=== PATIENT | female | born 1985 | race Caucasian/White ===

== ENCOUNTER 2017-03-13 19:32 | Emergency (ER) | payer MEDICAID ==
[2017-03-13] MEDS ORDERED: ONDANSETRON 4 MG TAB.RAPDIS PO ONE (19:57)
[2017-03-13] MEDS ORDERED: KETOROLAC TROMETHAMINE INJ/PF 30 MG/1 ML SDV IV ONE (20:32)
[2017-03-13] MEDS ORDERED: NORMAL SALINE 1000 ML 1,000 ML IV PRN (20:32)
--- NOTE | 2017-03-13 20:32 | ER Document Report ---
ED GI/ - General Chief Complaint: Abdominal Pain Stated Complaint: PELVIC PAIN/NAUSEA Time Seen by Provider: 03/13/17 20:01 Mode of Arrival: Ambulatory Information source: Patient TRAVEL OUTSIDE OF THE [place] IN LAST 30 DAYS: No - HPI Patient complains to provider of: Flank pain Onset: Other - 3 week Timing/Duration: Gradual Quality of pain: Achy, Sharp, Stabbing Severity at maximum: Moderate Severity in ED: Moderate Pain Level: 3 Location: Right flank Vaginal bleeding (Compared to normal period): None Associated symptoms: Chills, Dysuria, Nausea, Vomiting Similar symptoms previously: No Recently seen / treated by doctor: No Notes: 03/14/17 00:07 Patient is a 31-year-old female who presents to the emergency room complaining of 3 week history of right-sided flank pain, with associated nausea and vomiting , she denies any fevers, no diarrhea, no vaginal discharge or irregular bleeding - Related Data Allergies/Adverse Reactions: ciprofloxacin [From Cipro] Allergy (Verified 09/01/15 11:51) Unknown reaction Penicillins Allergy (Verified 09/01/15 11:51) Unknown reaction Past Medical History - General Information source: Patient - Social History Smoking Status: Current Every Day Smoker Chew tobacco use (# tins/day): No Frequency of alcohol use: None Drug Abuse: None Family History: Arthritis, CAD, CVA, DM, Hyperlipidemia, Hypertension, Malignancy, Other - MS. denies: Thyroid Disfunction Patient has suicidal ideation: No Patient has homicidal ideation: No - Past Medical History Cardiac Medical History: Reports: Hx Hypercholesterolemia, Hx Hypertension - meds to assist with pulse Pulmonary Medical History: Reports: Hx Asthma Neurological Medical History: Reports: Hx Migraine Renal/ Medical History: Denies: Hx Ectopic , Hx Ovarian Cysts, Hx Peritoneal Dialysis, Hx Pelvic Inflammatory Disease GI Medical History: Denies: Hx Gastritis, Hx Gastroesophageal Reflux Disease, Hx Hepatitis, Hx Irritable Bowel Musculoskeltal Medical History: Reports Hx Fibromyalgia Psychiatric Medical History: Reports: Hx Anxiety, Hx Attention Deficit Hyperactivity Disorder, Hx Bipolar Disorder, Hx Borderline Personality Disorder , Hx Depression Traumatic Medical History: Reports: Hx Fractures - left arm Infectious Medical History: Denies: Hx Hepatitis Past Surgical History: Reports: Hx Adenoidectomy, Hx Dilation and Curettage, Hx Myringotomy, Hx Orthopedic Surgery - back surgery, Hx Tonsillectomy - Immunizations Immunizations up to date: Yes Hx Diphtheria, Pertussis, Tetanus Vaccination: Yes - 2014 Hx Pneumococcal Vaccination: 09/16/10 Review of Systems - Review of Systems Constitutional: No symptoms reported EENT: No symptoms reported Cardiovascular: No symptoms reported Respiratory: No symptoms reported Gastrointestinal: See HPI Genitourinary: See HPI Female Genitourinary: No symptoms reported Musculoskeletal: No symptoms reported Skin: No symptoms reported Hematologic/Lymphatic: No symptoms reported Neurological/Psychological: No symptoms reported -: Yes All other systems reviewed and negative Physical Exam - Vital signs Vitals: Temp Pulse Resp BP Pulse Ox 98.0 F 105 H 17 123/82 97 03/13/17 19:40 03/13/17 19:40 03/13/17 19:40 03/13/17 19:40 03/13/17 19:40 Interpretation: Normal - General General appearance: Appears well, Alert - HEENT Head: Normocephalic, Atraumatic Eyes: Normal Pupils: PERRL - Respiratory Respiratory status: No respiratory distress Chest status: Nontender Breath sounds: Normal Chest palpation: Normal - Cardiovascular Rhythm: Regular Heart sounds: Normal auscultation Murmur: No - Abdominal Inspection: Normal Distension: No distension Bowel sounds: Normal Tenderness: Tender - right flank Organomegaly: No organomegaly - Back Back: Normal, CVA tenderness - right side - Extremities General upper extremity: Normal inspection, Nontender, Normal color, Normal ROM , Normal temperature General lower extremity: Normal inspection, Nontender, Normal color, Normal ROM , Normal temperature, Normal weight bearing. No: Reza's sign - Neurological Neuro grossly intact: Yes Cognition: Normal Orientation: AAOx4 [place] Coma Scale Eye Opening: Spontaneous Era Coma Scale Verbal: Oriented [place] Coma Scale Motor: Obeys Commands Era Coma Scale Total: 15 Speech: Normal Motor strength normal: LUE, RUE, LLE, RLE Sensory: Normal - Psychological Associated symptoms: Normal affect, Normal mood - Skin Skin Temperature: Warm Skin Moisture: Dry Skin Color: Normal Course - Re-evaluation Re-evalutation: 03/14/17 00:08 Laboratory findings discussed with patient at bedside which are consistent with a urinary tract infection, she was started on antibiotics for this and advised to follow-up with a primary care provider or return if symptoms worsen, patient acknowledges understanding and agreement with this plan - Vital Signs Vital signs: Temp Pulse Resp BP Pulse Ox 97.7 F 93 17 115/78 99 03/13/17 22:11 03/13/17 22:11 03/13/17 22:11 03/13/17 22:11 03/13/17 22:11 - Laboratory Result Diagrams: 03/13/17 20:22 03/13/17 20:22 Laboratory results interpreted by me: 03/13/17 03/13/17 03/13/17 20:05 20:22 20:22 WBC 13.7 H Absolute Lymphocytes 5.1 H Total Bilirubin 1.5 H Total Protein 8.5 H Urine Protein 30 H Urine Nitrite POSITIVE H Ur Leukocyte Esterase LARGE H Discharge - Discharge Clinical Impression: Urinary tract infection Qualifiers: Urinary tract infection type: site unspecified Hematuria presence: without hematuria Qualified Code(s): N39.0 - Urinary tract infection, site not specified Condition: Stable Disposition: HOME, SELF-CARE Instructions: Urinary Tract Infection ([facility]) Additional Instructions: Follow up with your primary care provider in one to 2 days. Return to the emergency room immediately if symptoms worsen or any additional concerns. Follow up with your primary care provider in one to 2 days. Return to the emergency room immediately if symptoms worsen or any additional concerns. Prescriptions: Cephalexin Monohydrate [Keflex 500 mg Capsule] 500 mg PO BID #20 capsule Hydrocodone/Acetaminophen [Hydrocodon-Acetaminophen 5-325] 1 each PO Q6 #10 tablet Referrals: EDMOND SANCHEZ MD [Primary Care Provider] - Follow up as needed
[2017-03-13 20:39] LABS: ABSOLUTE BASOPHILS # (AUTO) 0.2 10^3/uL (0.0-0.2); ABSOLUTE EOSINOPHILS # (AUTO) 0.5 10^3/uL (0.0-0.6); ABSOLUTE LYMPHOCYTES (AUTO) 5.1 10^3/uL (0.5-4.7); ABSOLUTE NEUT (AUTO) 6.9 10^3/uL (1.7-8.2); BASOPHILS % (AUTO) 1.1 % (0-2); EOSINOPHILS % (AUTO) 3.6 % (0-6); HEMATOCRIT 46.4 % (36.0-47.0); HEMOGLOBIN 15.4 g/dL (12.0-15.5); HGB HCT DIFFERENCE -0.2; LYMPHOCYTES % (AUTO) 37.6 % (13-45); MEAN CORPUSCULAR HEMOGLOBIN 30.3 pg (27.0-33.4); MEAN CORPUSCULAR HGB CONC 33.3 g/dL (32.0-36.0); MEAN CORPUSCULAR VOLUME 91 fl (80-97); MONOCYTES % (AUTO) 7.4 % (3-13); RED BLOOD COUNT 5.09 10^6/uL (3.72-5.28); SEGMENTED NEUTROPHILS % (AUTO) 50.3 % (42-78); WHITE BLOOD COUNT 13.7 10^3/uL (4.0-10.5)
[2017-03-13 20:41] LABS: APPEARANCE,URINE CLOUDY; BILIRUBIN,URINE NEGATIVE (NEGATIVE); GLUCOSE, URINE NEGATIVE (NEGATIVE); KETONES,URINE NEGATIVE (NEGATIVE); LEUKOCYTE ESTERASE,URINE LARGE (NEGATIVE); NITRITE,URINE POSITIVE (NEGATIVE); PROTEIN,URINE 30 mg/dL (NEGATIVE); UROBILINOGEN,URINE NEGATIVE mg/dL (<2.0)
[2017-03-13 20:56] LABS: ALANINE AMINOTRANSFERASE 35 U/L (9-52); ALBUMIN 4.5 g/dL (3.5-5.0); ALKALINE PHOSPHATASE 101 U/L (38-126); ANION GAP 11 (5-19); ASPARTATE AMINO TRANSFERASE 23 U/L (14-36); BILIRUBIN,DIRECT 0.3 mg/dL (0.0-0.4); BILIRUBIN,TOTAL 1.5 mg/dL (0.2-1.3); BLOOD UREA NITROGEN 9 mg/dL (7-20); CALCIUM 9.7 mg/dL (8.4-10.2); CARBON DIOXIDE 25 mmol/L (22-30); CHLORIDE 104 mmol/L (98-107); CREATININE RESULT 0.85 mg/dL (0.52-1.25); GLUCOSE 89 mg/dL (75-110); LIPASE 92.6 U/L (23-300); POTASSIUM 4.8 mmol/L (3.6-5.0); SODIUM 140.3 mmol/L (137-145); TOTAL PROTEIN 8.5 g/dL (6.3-8.2)
[2017-03-13] MEDS ORDERED: CEPHALEXIN 500 MG CAPSULE PO ONE (21:21)
[2017-03-13] MEDS ORDERED: MORPHINE SULFATE 10 MG/ML INJ IV ONE (21:21)
[2017-03-13] MEDS ORDERED: HYDROCODONE/ACETAMINOPHEN 5-325 MG 6 TAB/DSPK PO PRN (22:04)
[2017-03-13 22:13] VITALS: BP 115/78
== END 2017-03-13 22:20 | disposition home or self-care (01) ==
LOC: ER 19:32
DX: N39.0 Urinary tract infection, site not specified (principal); R10.9 Unspecified abdominal pain; R10.2 Pelvic and perineal pain; R11.2 Nausea with vomiting, unspecified; F17.200 Nicotine dependence, unspecified, uncomplicated
CPT/HCPCS: 99284; 96361; 96374; 96375; 36415; 83690; 85025; 81025; 80053; 81001; S0119; J1885; J2270; J7030

== ENCOUNTER 2017-04-08 20:35 | Emergency (ER) | payer MEDICAID ==
[2017-04-08] MEDS ORDERED: OXYCODONE-ACETAMINOPHEN 5-325 MG TABLET PO ONE (23:14)
--- NOTE | 2017-04-08 23:15 | ER Document Report ---
HPI - HPI Patient complains to provider of: right ankle injury Pain Level: 4 Context: Patient is a 31-year-old female who comes emergency department for chief complaint of right ankle injury. She states that she rolled her ankle, causing swelling to the outside of her ankle, she states she can barely walk on this and has been tripping and falling because of it. She denies any other areas of injury. She denies head injury. Past medical history of fibromyalgia, anxiety , PTSD, she is taking Lyrica, Cymbalta, Xanax, Topamax, ibuprofen, Adderall. - REPRODUCTIVE Reproductive: DENIES: : - DERM Skin Color: Normal, [place] Past Medical History - General Information source: Patient - Social History Smoking Status: Former Smoker Frequency of alcohol use: Occasional Drug Abuse: None Lives with: Family Family History: Arthritis, CAD, CVA, DM, Hyperlipidemia, Hypertension, Malignancy, Other - MS. denies: Thyroid Disfunction - Past Medical History Cardiac Medical History: Reports: Hx Hypercholesterolemia, Hx Hypertension - meds to assist with pulse Pulmonary Medical History: Reports: Hx Asthma Neurological Medical History: Reports: Hx Migraine Renal/ Medical History: Denies: Hx Ectopic , Hx Ovarian Cysts, Hx Peritoneal Dialysis, Hx Pelvic Inflammatory Disease GI Medical History: Denies: Hx Gastritis, Hx Gastroesophageal Reflux Disease, Hx Hepatitis, Hx Irritable Bowel Musculoskeltal Medical History: Reports Hx Fibromyalgia Psychiatric Medical History: Reports: Hx Anxiety, Hx Attention Deficit Hyperactivity Disorder, Hx Bipolar Disorder, Hx Borderline Personality Disorder , Hx Depression Traumatic Medical History: Reports: Hx Fractures - left arm Infectious Medical History: Denies: Hx Hepatitis Past Surgical History: Reports: Hx Adenoidectomy, Hx Dilation and Curettage, Hx Myringotomy, Hx Orthopedic Surgery - back surgery, Hx Tonsillectomy - Immunizations Immunizations up to date: Yes Hx Diphtheria, Pertussis, Tetanus Vaccination: Yes - 2014 Hx Pneumococcal Vaccination: 09/16/10 Vertical Provider Document - CONSTITUTIONAL General Appearance: WD/WN, No Apparent Distress - INFECTION CONTROL TRAVEL OUTSIDE OF THE [place] IN LAST 30 DAYS: No - HEENT HEENT: Atraumatic, Normocephalic - RESPIRATORY Respiratory: Breath Sounds Normal, No Respiratory Distress O2 Sat by Pulse Oximetry: 97 - CARDIOVASCULAR Cardiovascular: Regular Rate, Regular Rhythm - GI/ABDOMEN Gastrointestinal: Abdomen Soft, Abdomen Non-Tender - BACK Back: Normal Inspection - MUSCULOSKELETAL/EXTREMETIES Musculoskeletal/Extremeties: Tender - Patient winces with palpation over the lateral ankle on the right side, normal pulse and sensation, normal foot exam otherwise, normal leg and lower extremity exam otherwise Course - Re-evaluation Re-evalutation: X-ray imaging shows no concerning abnormalities. Suspect soft tissue injury based on her examination. No other concerning abnormalities noted. He is already taking an anti-inflammatory, ibuprofen, at home, patient asking for additional medication, she was given tramadol. Patient also placed in ankle stirrup splint, provided crutches, discussed follow-up and return precautions. - Vital Signs Vital signs: Temp Pulse Resp BP Pulse Ox 98.4 F 103 H 20 130/78 H 97 04/08/17 21:10 04/08/17 21:10 04/08/17 21:10 04/08/17 21:10 04/08/17 21:10 - Diagnostic Test Radiology reviewed: Image reviewed, Reports reviewed Procedures - Immobilization Right ankle Pre-Proc Neuro Vasc Exam: Normal Immobilizer type: Ankle stirrup Performed by: RN Post-Proc Neuro Vasc Exam: Normal Alignment checked and good: Yes Discharge - Discharge Clinical Impression: Right ankle injury Qualifiers: Encounter type: initial encounter Qualified Code(s): S99.911A - Unspecified injury of right ankle, initial encounter Condition: Stable Disposition: HOME, SELF-CARE Additional Instructions: Examination and symptoms are consistent with an ankle sprain. X-ray imaging shows no abnormalities. Elevate your ankle, apply ice to the ankle 3-4 times daily for 10-15 minutes, continue your ibuprofen, I recommend using the supportive splint and crutches for the next 2-3 days. Follow-up with primary care. Return to emergency department for any concerning symptoms. Prescriptions: Tramadol HCl 50 mg PO ASDIR PRN #20 tablet PRN Reason:
--- NOTE | 2017-04-08 23:30 | RADIOLOGY REPORT (SQ) ---
EXAM DESCRIPTION: ANKLE RIGHT COMPLETE COMPLETED DATE/TIME: 04/08/2017 11:22 pm REASON FOR STUDY: injury, painful walking COMPARISON: None. NUMBER OF VIEWS: Three views. TECHNIQUE: AP, lateral, and oblique radiographic images acquired of the right ankle. LIMITATIONS: None. FINDINGS: MINERALIZATION: Normal. BONES: No acute fracture or dislocation. No worrisome bone lesions. JOINTS: No effusions. SOFT TISSUES: No soft tissue swelling. No foreign body. OTHER: No other significant finding. IMPRESSION: NEGATIVE STUDY OF THE RIGHT ANKLE. NO RADIOGRAPHIC EVIDENCE OF ACUTE INJURY. TECHNICAL DOCUMENTATION: JOB ID: [id number] [employer]- All Rights Reserved
[2017-04-08 23:46] VITALS: BP 134/80
== END 2017-04-08 23:46 | disposition home or self-care (01) ==
LOC: ER 20:35
DX: S99.911A Unspecified injury of right ankle, initial encounter (principal); X50.9XXA Other and unspecified overexertion or strenuous movements or postures, initial encounter; I10 Essential (primary) hypertension; J45.909 Unspecified asthma, uncomplicated; F41.9 Anxiety disorder, unspecified; F90.9 Attention-deficit hyperactivity disorder, unspecified type; F32.9 Major depressive disorder, single episode, unspecified; F43.10 Post-traumatic stress disorder, unspecified; M79.7 Fibromyalgia; Z79.899 Other long term (current) drug therapy; Z79.1 Long term (current) use of non-steroidal anti-inflammatories (NSAID); Z87.891 Personal history of nicotine dependence
CPT/HCPCS: 99283; 73610; L4350

== ENCOUNTER 2017-11-21 10:25 | Emergency (ER) | payer MEDICAID ==
[2017-11-21 10:39] VITALS: BP 118/68
[2017-11-21] MEDS ORDERED: PREDNISONE 20 MG TABLET PO ONE (11:05)
[2017-11-21] MEDS ORDERED: LIDOCAINE 5% (700 MG) TRANSDERMAL ADH..PATCH TP ONE (11:06)
--- NOTE | 2017-11-21 11:11 | ER Document Report ---
ED General - General Chief Complaint: Back Pain Stated Complaint: BACK INJURY Time Seen by Provider: 11/21/17 10:53 TRAVEL OUTSIDE OF THE [place] IN LAST 30 DAYS: No - HPI Patient complains to provider of: Back pain Notes: Patient coming in for evaluation of back pain back pain ongoing for 1 week patient states she was lifting heavy objects at work. Patient denies any bowel or bladder incontinence. Amatory here in the hospital. Denies any numbness or tingling going down the leg. Patient resting comfortably upon my evaluation holding her right lower back - Related Data Allergies/Adverse Reactions: ciprofloxacin [From Cipro] Allergy (Verified 09/01/15 11:51) Unknown reaction codeine Allergy (Verified 11/21/17 10:57) Unknown reaction Penicillins Allergy (Verified 09/01/15 11:51) Unknown reaction Past Medical History - Social History Smoking Status: Current Every Day Smoker Chew tobacco use (# tins/day): No Frequency of alcohol use: None Drug Abuse: None Family History: Arthritis, CAD, CVA, DM, Hyperlipidemia, Hypertension, Malignancy, Other - MS. denies: Thyroid Disfunction Patient has suicidal ideation: No Patient has homicidal ideation: No - Past Medical History Cardiac Medical History: Reports: Hx Hypercholesterolemia, Hx Hypertension - meds to assist with pulse Pulmonary Medical History: Reports: Hx Asthma Neurological Medical History: Reports: Hx Migraine Renal/ Medical History: Denies: Hx Ectopic , Hx Ovarian Cysts, Hx Peritoneal Dialysis, Hx Pelvic Inflammatory Disease GI Medical History: Denies: Hx Gastritis, Hx Gastroesophageal Reflux Disease, Hx Hepatitis, Hx Irritable Bowel Musculoskeltal Medical History: Reports Hx Fibromyalgia Psychiatric Medical History: Reports: Hx Anxiety, Hx Attention Deficit Hyperactivity Disorder, Hx Bipolar Disorder, Hx Borderline Personality Disorder , Hx Depression Traumatic Medical History: Reports: Hx Fractures - left arm Infectious Medical History: Denies: Hx Hepatitis Past Surgical History: Reports: Hx Adenoidectomy, Hx Dilation and Curettage, Hx Myringotomy, Hx Orthopedic Surgery - back surgery, Hx Tonsillectomy - Immunizations Immunizations up to date: Yes Hx Diphtheria, Pertussis, Tetanus Vaccination: Yes - 2014 Hx Pneumococcal Vaccination: 09/16/10 Review of Systems - Review of Systems Constitutional: No symptoms reported EENT: No symptoms reported Cardiovascular: No symptoms reported Respiratory: No symptoms reported Gastrointestinal: No symptoms reported Genitourinary: No symptoms reported Female Genitourinary: No symptoms reported Musculoskeletal: Back pain Skin: No symptoms reported Hematologic/Lymphatic: No symptoms reported Neurological/Psychological: No symptoms reported -: Yes All other systems reviewed and negative Physical Exam - Vital signs Vitals: Temp Pulse Resp BP Pulse Ox 98.1 F 77 16 118/68 99 11/21/17 10:38 11/21/17 10:38 11/21/17 10:38 11/21/17 10:38 11/21/17 10:38 Interpretation: Normal - General General appearance: Appears well, Alert - HEENT Head: Normocephalic, Atraumatic Eyes: Normal Pupils: PERRL - Respiratory Respiratory status: No respiratory distress Chest status: Nontender Breath sounds: Normal Chest palpation: Normal - Cardiovascular Rhythm: Regular Heart sounds: Normal auscultation Murmur: No - Abdominal Inspection: Normal Distension: No distension Bowel sounds: Normal Tenderness: Nontender Organomegaly: No organomegaly - Back Back: Normal, Tender - Mild tenderness of the right paraspinal and midline no signs of trauma no bruising no rashes - Extremities General upper extremity: Normal inspection, Nontender, Normal color, Normal ROM , Normal temperature General lower extremity: Normal inspection, Nontender, Normal color, Normal ROM , Normal temperature, Normal weight bearing. No: Reza's sign - Neurological Neuro grossly intact: Yes Cognition: Normal Orientation: AAOx4 [place] Coma Scale Eye Opening: Spontaneous Era Coma Scale Verbal: Oriented [place] Coma Scale Motor: Obeys Commands Era Coma Scale Total: 15 Speech: Normal Motor strength normal: LUE, RUE, LLE, RLE Sensory: Normal - Psychological Associated symptoms: Normal affect, Normal mood - Skin Skin Temperature: Warm Skin Moisture: Dry Skin Color: Normal Course - Re-evaluation Re-evalutation: 11/21/17 15:04 The patient presents with low back pain without signs of spinal cord compression , cauda equina syndrome, infection, aneurysm, or other serious etiology. The patient is neurologically intact. Given the extremely low risk of these diagnoses further testing and evaluation for these possibilities does not appear to be indicated at this time. The patient has been instructed to return if the symptoms worsen or change in any way. Patient drug database shows multiple prescriptions for narcotics last 1 was a month supply of tramadol given on 10/30/2017 with 3 refills. Explained to the patient she can continue this along with Tylenol Motrin warm packs and high packs for her back pain. I will give the patient 10 Flexeril's otherwise patient is discharged home - Vital Signs Vital signs: Temp Pulse Resp BP Pulse Ox 98.1 F 77 16 118/68 99 11/21/17 10:38 11/21/17 10:38 11/21/17 10:38 11/21/17 10:38 11/21/17 10:38 Discharge - Discharge Clinical Impression: Back pain Qualifiers: Back pain location: low back pain Chronicity: acute Back pain laterality: right Sciatica presence: without sciatica Qualified Code(s): M54.5 - Low back pain Condition: Good Disposition: HOME, SELF-CARE Instructions: Ice Packs ([facility]), Low Back Pain ([facility]), Muscle Relaxers ([facility]), Muscle Strain ([facility]), Warm Packs ([facility]) Additional Instructions: More likely you are suffering from a slight back sprain. Please continue your tramadol prescribed by her primary care physician. SHe may also use Tylenol Motrin for pain control. Please use warm packs and ice packs to also help out with the pain. I will give you a prescription for Flexeril to use over the next few days to help also help out with the pain most back pain was ultimately relieved by rest and anti-inflammatory medications. Prescriptions: Cyclobenzaprine HCl [Flexeril 5 mg Tablet] 5 mg PO TID #10 tablet Ibuprofen [Motrin 800 mg Tablet] 800 mg PO Q8H PRN #30 tab PRN Reason: Referrals: EDMOND SANCHEZ MD [Primary Care Provider] - Follow up as needed
== END 2017-11-21 11:34 | disposition home or self-care (01) ==
LOC: ER 10:25
DX: M54.5 Low back pain (principal); X50.0XXA Overexertion from strenuous movement or load, initial encounter; Y99.0 Civilian activity done for income or pay; I10 Essential (primary) hypertension; J45.909 Unspecified asthma, uncomplicated; F17.200 Nicotine dependence, unspecified, uncomplicated; Z88.1 Allergy status to other antibiotic agents; Z88.5 Allergy status to narcotic agent; Z88.0 Allergy status to penicillin
CPT/HCPCS: 99283; J3490; J7512

== ENCOUNTER 2018-01-28 03:12 | Emergency (ER) | payer MEDICAID ==
[2018-01-28] MEDS ORDERED: NORMAL SALINE 1000 ML 1,000 ML IV ONE (03:34)
[2018-01-28] MEDS ORDERED: ONDANSETRON HCL INJ/PF 4 MG/2 ML SDV IV ONE (03:34)
[2018-01-28] MEDS ORDERED: KETOROLAC TROMETHAMINE INJ/PF 30 MG/1 ML SDV IV ONE (03:44)
[2018-01-28] MEDS ORDERED: DIPHENHYDRAMINE HCL 50 MG/ML VIAL IV ONE (03:44)
[2018-01-28] MEDS ORDERED: METOCLOPRAMIDE HCL INJ/PF 10 MG/2 ML SDV IV ONE (03:44)
--- NOTE | 2018-01-28 03:46 | ER Document Report ---
ED General - General Chief Complaint: Headache >24 hrs old Stated Complaint: HEADACHE,VOMITING Time Seen by Provider: 01/28/18 03:36 Notes: Patient is a 32-year-old female comes emergency department with chief complaint of fever, headache, body aches, occasional cough, she states she has been sick for the past 4 days with fevers. She denies specific chest or abdominal pain. She states that she is having a migraine as well and she has had frequent migraines ever since she stopped drinking caffeine, she states that recently she was placed on Suboxone and Topamax but she is still having headaches. She reports a history of bipolar, anxiety, and fibromyalgia. TRAVEL OUTSIDE OF THE [place] IN LAST 30 DAYS: No - Related Data Allergies/Adverse Reactions: ciprofloxacin [From Cipro] Allergy (Verified 09/01/15 11:51) Unknown reaction codeine Allergy (Verified 11/21/17 10:57) Unknown reaction Penicillins Allergy (Verified 09/01/15 11:51) Unknown reaction Past Medical History - General Information source: Patient - Social History Smoking Status: Former Smoker Frequency of alcohol use: None Drug Abuse: Other - Patient reports former drug abuse, none in years, denies ever using IV drugs Lives with: Family Family History: Arthritis, CAD, CVA, DM, Hyperlipidemia, Hypertension, Malignancy, Other - MS. denies: Thyroid Disfunction - Past Medical History Cardiac Medical History: Reports: Hx Hypercholesterolemia, Hx Hypertension - meds to assist with pulse Pulmonary Medical History: Reports: Hx Asthma Neurological Medical History: Reports: Hx Migraine Renal/ Medical History: Denies: Hx Ectopic , Hx Ovarian Cysts, Hx Peritoneal Dialysis, Hx Pelvic Inflammatory Disease GI Medical History: Denies: Hx Gastritis, Hx Gastroesophageal Reflux Disease, Hx Hepatitis, Hx Irritable Bowel Musculoskeltal Medical History: Reports Hx Fibromyalgia Psychiatric Medical History: Reports: Hx Anxiety, Hx Attention Deficit Hyperactivity Disorder, Hx Bipolar Disorder, Hx Borderline Personality Disorder , Hx Depression Traumatic Medical History: Reports: Hx Fractures - left arm Infectious Medical History: Denies: Hx Hepatitis Past Surgical History: Reports: Hx Adenoidectomy, Hx Dilation and Curettage, Hx Myringotomy, Hx Orthopedic Surgery - back surgery, Hx Tonsillectomy - Immunizations Immunizations up to date: Yes Hx Diphtheria, Pertussis, Tetanus Vaccination: Yes - 2014 Hx Pneumococcal Vaccination: 09/16/10 Review of Systems - Review of Systems Constitutional: See HPI EENT: No symptoms reported Cardiovascular: No symptoms reported Respiratory: See HPI Gastrointestinal: No symptoms reported Genitourinary: No symptoms reported Female Genitourinary: No symptoms reported Musculoskeletal: No symptoms reported Skin: No symptoms reported Hematologic/Lymphatic: No symptoms reported Neurological/Psychological: See HPI Physical Exam - Vital signs Vitals: Temp Pulse Resp BP Pulse Ox 100.4 F 128 H 19 120/69 96 01/28/18 03:01/28/18 03:01/28/18 03:01/28/18 03:01/28/18 03:22 - Notes Notes: GENERAL: Alert, interacts well. No acute distress. HEAD: Normocephalic, atraumatic. EYES: Pupils equal, round, and reactive to light. Extraocular movements intact. ENT: Oral mucosa moist, tongue midline. NECK: Full range of motion. Supple. Trachea midline. Specifically no nuchal rigidity. LUNGS: Clear to auscultation bilaterally, no wheezes, rales, or rhonchi. No respiratory distress. HEART: Tachycardic. No arrhythmia noted. No murmur ABDOMEN: Soft, non-tender. Non-distended. Bowel sounds present in all 4 quadrants. EXTREMITIES: Moves all 4 extremities spontaneously. No edema, normal radial and dorsalis pedis pulses bilaterally. No cyanosis. BACK: no cervical, thoracic, lumbar midline tenderness. No saddle anesthesia, normal distal neurovascular exam. NEUROLOGICAL: Alert and oriented x3. Normal speech. [cranial nerves II through XII grossly intact]. PSYCH: Normal affect, normal mood. SKIN: Warm, dry, normal turgor. No rashes or lesions noted. Course - Re-evaluation Re-evalutation: Patient smiling, well-appearing, no nuchal rigidity, unremarkable lung exam, no cough, no respiratory symptoms noted. Soft abdomen, no CVA tenderness. She is tachycardic. Complaining of headache which is throbbing, she has photophobia. Fever reported for 4 days. Very low suspicion of meningitis, specifically not septic meningitis. CBC shows leukocytosis with elevation of neutrophils but no bandemia, chemistry generally unremarkable. Urinalysis shows infection with positive nitrates, white blood cells, leukocyte esterase. Culture placed. Given Rocephin. Suspect this is the cause of her fever. Patient is a poor historian. Patient sleeping and easily aroused on reexamination. She does report feeling better. Heart rate significantly improved. She states she is ready to go home. Discussed treatment, follow-up, return precautions. Patient states understanding and agreement. - Vital Signs Vital signs: Temp Pulse Resp BP Pulse Ox 99.2 F 108 H 18 112/62 96 01/28/18 05:41 01/28/18 05:41 01/28/18 05:41 01/28/18 05:41 01/28/18 05:41 - Laboratory Result Diagrams: 01/28/18 04:06 01/28/18 04:06 Laboratory results interpreted by me: 01/28/18 01/28/18 01/28/18 04:06 04:06 04:06 WBC 13.9 H Seg Neutrophils % 82.4 H Lymphocytes % 6.0 L Absolute Neutrophils 11.5 H Absolute Monocytes 1.5 H Glucose 128 H Total Bilirubin 2.3 H Direct Bilirubin 0.9 H AST 136 H ALT 140 H Total Protein 8.4 H Urine Protein 100 H Urine Blood LARGE H Urine Nitrite POSITIVE H Urine Urobilinogen 2.0 H Ur Leukocyte Esterase MODERATE H Discharge - Discharge Clinical Impression: Fever Qualifiers: Fever type: unspecified Qualified Code(s): R50.9 - Fever, unspecified Urinary tract infection Qualifiers: Urinary tract infection type: site unspecified Hematuria presence: without hematuria Qualified Code(s): N39.0 - Urinary tract infection, site not specified Headache Qualifiers: Headache type: unspecified Headache chronicity pattern: episodic headache Intractability: not intractable Qualified Code(s): R51 - Headache Condition: Stable Disposition: HOME, SELF-CARE Additional Instructions: Your workup indicates a urinary tract infection, this is most likely the source of your fever. Take Keflex antibiotics as prescribed, drink plenty fluids and rest. Continue your current headache medications. Follow-up with primary care for additional evaluation and management. Return if you worsen including vomiting, abdominal or flank pain, severe worsening headache, or any other concerning or worsening symptoms. Prescriptions: Cephalexin Monohydrate [Keflex 500 mg Capsule] 500 mg PO QID #28 capsule Forms: Return to Work Referrals: EDMOND SANCHEZ MD [Primary Care Provider] - Follow up as needed
[2018-01-28 04:30] LABS: APPEARANCE,URINE CLOUDY; BILIRUBIN,URINE NEGATIVE (NEGATIVE); COLOR,URINE AMBER; GLUCOSE, URINE NEGATIVE (NEGATIVE); KETONES,URINE NEGATIVE (NEGATIVE); LEUKOCYTE ESTERASE,URINE MODERATE (NEGATIVE); NITRITE,URINE POSITIVE (NEGATIVE); PROTEIN,URINE 100 mg/dL (NEGATIVE); URINE SPECIFIC GRAVITY 1.016
[2018-01-28 04:35] LABS: ABSOLUTE EOSINOPHILS # (AUTO) 0.1 10^3/uL (0.0-0.6); ABSOLUTE LYMPHOCYTES (AUTO) 0.8 10^3/uL (0.5-4.7); ABSOLUTE MONOCYTES (AUTO) 1.5 10^3/uL (0.1-1.4); ABSOLUTE NEUT (AUTO) 11.5 10^3/uL (1.7-8.2); BASOPHILS % (AUTO) 0.2 % (0-2); EOSINOPHILS % (AUTO) 0.4 % (0-6); HEMATOCRIT 42.6 % (36.0-47.0); HEMOGLOBIN 14.5 g/dL (12.0-15.5); MEAN CORPUSCULAR HEMOGLOBIN 31.1 pg (27.0-33.4); MEAN CORPUSCULAR HGB CONC 34.1 g/dL (32.0-36.0); MEAN CORPUSCULAR VOLUME 91 fl (80-97); PLATELET COUNT 262 10^3/uL (150-450); RED BLOOD COUNT 4.67 10^6/uL (3.72-5.28); RED CELL DISTRIBUTION WIDTH 12.6 % (11.5-14.0); SEGMENTED NEUTROPHILS % (AUTO) 82.4 % (42-78); TOTAL CELLS COUNTED % (AUTO) 100 %; WHITE BLOOD COUNT 13.9 10^3/uL (4.0-10.5)
[2018-01-28 04:37] LABS: ALANINE AMINOTRANSFERASE 140 U/L (9-52); ALBUMIN 4.2 g/dL (3.5-5.0); ALKALINE PHOSPHATASE 107 U/L (38-126); ANION GAP 11 (5-19); ASPARTATE AMINO TRANSFERASE 136 U/L (14-36); BILIRUBIN,DIRECT 0.9 mg/dL (0.0-0.4); BILIRUBIN,TOTAL 2.3 mg/dL (0.2-1.3); BLOOD UREA NITROGEN 13 mg/dL (7-20); CALCIUM 9.5 mg/dL (8.4-10.2); CARBON DIOXIDE 29 mmol/L (22-30); CHLORIDE 100 mmol/L (98-107); GLUCOSE 128 mg/dL (75-110); POTASSIUM 4.1 mmol/L (3.6-5.0); SODIUM 140.3 mmol/L (137-145); TOTAL PROTEIN 8.4 g/dL (6.3-8.2)
[2018-01-28] MEDS ORDERED: CEFTRIAXONE INJ 1000 MG VIAL IV ONE (04:44)
[2018-01-28] MEDS ORDERED: MORPHINE SULFATE 10 MG/ML INJ IV ONE (04:50)
[2018-01-28 05:42] VITALS: BP 112/62
== END 2018-01-28 05:48 | disposition home or self-care (01) ==
LOC: ER 03:12
DX: N39.0 Urinary tract infection, site not specified (principal); R51 Headache; R50.9 Fever, unspecified; M79.1 Myalgia; E78.00 Pure hypercholesterolemia, unspecified; I10 Essential (primary) hypertension; Z88.6 Allergy status to analgesic agent; Z88.3 Allergy status to other anti-infective agents; Z88.0 Allergy status to penicillin
CPT/HCPCS: 99284; 96361; 96375; 96365; 36415; 87086; 84703; 85025; 87088; 80053; 81001; 87186; J1200; J1885; J2765; J0696; J7030

== ENCOUNTER 2018-01-29 15:46 | Emergency (ER) | payer MEDICAID ==
[2018-01-29] MEDS ORDERED: ONDANSETRON 4 MG TAB.RAPDIS PO ONE (16:35)
--- NOTE | 2018-01-29 16:42 | ER Document Report ---
ED Medical Screen (RME) - General Chief Complaint: Flank Pain Stated Complaint: LEFT FLANK PAIN Time Seen by Provider: 01/29/18 16:28 Mode of Arrival: Ambulatory Information source: Patient Notes: A 32-year-old female presents with complaint of left flank and left upper abdominal pain. Patient reports that she has been experiencing intermittent fever, abdominal pain for a few weeks. She was recently started on Suboxone and believed her symptoms were secondary to withdrawal. Patient was seen yesterday and found to have urinary tract infection and a leukocytosis. Patient states that today left flank and left upper abdominal pain became worse after she sneezed and states "it felt like my stomach exploded". CBC yesterday did show the patient have a leukocytosis. She was feeling better and tolerating fluids upon discharge. Patient states she has been taking her antibiotics as prescribed. She is concerned because now she is "peeing straight blood". She denies previous history of kidney stones. I have greeted and performed a rapid medical assessment of the patient. A comprehensive evaluation and assessment will be performed by another ED provider. Medical decision making, lab review/xrays if performed will be reviewed by the ED provider assuming care of the patient. PHYSICAL EXAMINATION: GENERAL: Well-appearing, well-nourished and in no acute distress. HEAD: Atraumatic, normocephalic. EYES: Pupils equal round extraocular movements intact, conjunctiva are normal. ENT: Nares patent NECK: Normal range of motion LUNGS: No respiratory distress Musculoskeletal: Normal range of motion NEUROLOGICAL: Normal speech, normal gait. PSYCH: Normal mood, normal affect. SKIN: Warm, Dry, normal turgor, no rashes or lesions noted. TRAVEL OUTSIDE OF THE [place] IN LAST 30 DAYS: No - HPI Quality of pain: Stabbing, Throbbing Associated Symptoms: Abdominal pain, Chills, Fever, Nausea Exacerbated by: Denies Relieved by: Denies Similar symptoms previously: Yes Recently seen / treated by doctor: Yes - Related Data Smoking: Cigarettes Frequency of alcohol use: None Drug Abuse: Other Allergies/Adverse Reactions: ciprofloxacin [From Cipro] Allergy (Verified 01/29/18 15:47) Unknown reaction codeine Allergy (Verified 01/29/18 15:47) Unknown reaction Penicillins Allergy (Verified 01/29/18 15:47) Unknown reaction Past Medical History - Social History Chew tobacco use (# tins/day): No Frequency of alcohol use: None Drug Abuse: None - Past Medical History Cardiac Medical History: Reports: Hx Hypercholesterolemia, Hx Hypertension - meds to assist with pulse Pulmonary Medical History: Reports: Hx Asthma Neurological Medical History: Reports: Hx Migraine Renal/ Medical History: Denies: Hx Ectopic , Hx Ovarian Cysts, Hx Peritoneal Dialysis, Hx Pelvic Inflammatory Disease GI Medical History: Denies: Hx Gastritis, Hx Gastroesophageal Reflux Disease, Hx Hepatitis, Hx Irritable Bowel Musculoskeltal Medical History: Reports Hx Fibromyalgia Psychiatric Medical History: Reports: Hx Anxiety, Hx Attention Deficit Hyperactivity Disorder, Hx Bipolar Disorder, Hx Borderline Personality Disorder , Hx Depression Traumatic Medical History: Reports: Hx Fractures - left arm Infectious Medical History: Denies: Hx Hepatitis Past Surgical History: Reports: Hx Adenoidectomy, Hx Dilation and Curettage, Hx Myringotomy, Hx Orthopedic Surgery - back surgery, Hx Tonsillectomy - Immunizations Immunizations up to date: Yes Hx Diphtheria, Pertussis, Tetanus Vaccination: Yes - 2014 Physical Exam - Vital signs Vitals: Temp Pulse Resp BP Pulse Ox 98.9 F 106 H 16 133/73 H 97 01/29/18 15:52 01/29/18 15:52 01/29/18 15:52 01/29/18 15:52 01/29/18 15:52 Course - Vital Signs Vital signs: Temp Pulse Resp BP Pulse Ox 98.9 F 106 H 16 133/73 H 97 01/29/18 15:52 01/29/18 15:52 01/29/18 15:52 01/29/18 15:52 01/29/18 15:52
--- NOTE | 2018-01-29 17:04 | RADIOLOGY REPORT (SQ) ---
EXAM DESCRIPTION: CT LTD RENAL STONE PROTOCOL ON COMPLETED DATE/TIME: 01/29/2018 4:53 pm REASON FOR STUDY: flank pain/hematuria COMPARISON: 04/13/2012. TECHNIQUE: CT scan of the abdomen and pelvis performed without intravenous or oral contrast. Images reviewed with lung, soft tissue, and bone windows. Reconstructed coronal and sagittal MPR images revi ewed. All images stored on PACS. All CT scanners at this facility use dose modulation, iterative reconstruction, and/or weight based d osing when appropriate to reduce radiation dose to as low as reasonably achievable (ALARA). [facility]: Dose Right [facility]: CareDose [facility]: Dose Right [facility]: Teradose 4D [facility]: Smart [employer] RADIATION DOSE: CT Rad equipment meets quality standard of care and radiation dose reduction techniq ues were employed. CTDIvol: 16.9 mGy. DLP: 910 mGy-cm.mGy. LIMITATIONS: None. FINDINGS: LOWER CHEST: No significant findings. No nodules or infiltrates. NON-CONTRASTED LIVER, SPLEEN, ADRENALS: Evaluation limited by lack of IV contrast. No identified sign ificant masses. PANCREAS: No masses. No peripancreatic inflammatory changes. GALLBLADDER: No identified stones by CT criteria. No inflammatory changes to suggest cholecystitis. RIGHT KIDNEY AND URETER: No suspicious masses. Assessment limited by lack of IV contrast. No signif icant calcifications. No hydronephrosis or hydroureter. LEFT KIDNEY AND URETER: No suspicious masses. Assessment limited by lack of IV contrast. No signifi cant calcifications. No hydronephrosis or hydroureter. AORTA AND RETROPERITONEUM: No aneurysm. No retroperitoneal masses or adenopathy. BOWEL AND PERITONEAL CAVITY: No obvious masses or inflammatory changes. No free fluid. APPENDIX: Normal. PELVIS, BLADDER, AND ABDOMINAL WALL:IUD in the uterus. No abnormal masses. No free fluid. Bladder no rmal. BONES: No significant findings. OTHER: No other significant finding. IMPRESSION: NO SIGNIFICANT OR ACUTE PROCESS IN THE ABDOMEN OR PELVIS. COMMENT: Quality ID # [id number]: Final reports with documentation of one or more dose reduction techniques (e.g., Automated exposure control, adjustment of the mA and/or kV according to patient size, use of iterative reconstruction technique) TECHNICAL DOCUMENTATION: JOB ID: [id number] [employer]- All Rights Reserved Reading location - IP/workstation name: [email or web address]
--- NOTE | 2018-01-29 17:21 | ER Document Report ---
ED GI/ - General Chief Complaint: Flank Pain Stated Complaint: LEFT FLANK PAIN Time Seen by Provider: 01/29/18 16:28 Mode of Arrival: Ambulatory Notes: The patient is a 32-year-old female, past medical history fibromyalgia, bipolar , on Suboxone, presents after she sneezed and had worsening left upper quadrant and left flank pain. She was seen in the ER 2 days ago and diagnosed with pyelonephritis. She is taking her Keflex. Patient also having some nausea and vomited once and now having some epigastric abdominal pain. Patient also has her usual headache and takes Topamax prescribed by her neurologist. Patient denies diarrhea, constipation, fevers or vaginal bleeding. TRAVEL OUTSIDE OF THE [place] IN LAST 30 DAYS: No - Related Data Allergies/Adverse Reactions: ciprofloxacin [From Cipro] Allergy (Verified 01/29/18 15:47) Unknown reaction codeine Allergy (Verified 01/29/18 15:47) Unknown reaction Penicillins Allergy (Verified 01/29/18 15:47) Unknown reaction Past Medical History - General Information source: Patient - Social History Smoking Status: Current Every Day Smoker Chew tobacco use (# tins/day): No Frequency of alcohol use: None Drug Abuse: None Family History: Arthritis, CAD, CVA, DM, Hyperlipidemia, Hypertension, Malignancy, Other - MS. denies: Thyroid Disfunction Patient has suicidal ideation: No Patient has homicidal ideation: No - Past Medical History Cardiac Medical History: Reports: Hx Hypercholesterolemia, Hx Hypertension - meds to assist with pulse Pulmonary Medical History: Reports: Hx Asthma Neurological Medical History: Reports: Hx Migraine Renal/ Medical History: Denies: Hx Ectopic , Hx Ovarian Cysts, Hx Peritoneal Dialysis, Hx Pelvic Inflammatory Disease GI Medical History: Denies: Hx Gastritis, Hx Gastroesophageal Reflux Disease, Hx Hepatitis, Hx Irritable Bowel Musculoskeltal Medical History: Reports Hx Fibromyalgia Psychiatric Medical History: Reports: Hx Anxiety, Hx Attention Deficit Hyperactivity Disorder, Hx Bipolar Disorder, Hx Borderline Personality Disorder , Hx Depression Traumatic Medical History: Reports: Hx Fractures - left arm Infectious Medical History: Denies: Hx Hepatitis Past Surgical History: Reports: Hx Adenoidectomy, Hx Dilation and Curettage, Hx Myringotomy, Hx Orthopedic Surgery - back surgery, Hx Tonsillectomy - Immunizations Immunizations up to date: Yes Hx Diphtheria, Pertussis, Tetanus Vaccination: Yes - 2014 Hx Pneumococcal Vaccination: 09/16/10 Review of Systems - Review of Systems Notes: REVIEW OF SYSTEMS: CONSTITUTIONAL: -fevers, -chills EENT: -eye pain, -difficulty swallowing, -nasal congestion CARDIOVASCULAR: -chest pain, -syncope. RESPIRATORY: -cough, -SOB GASTROINTESTINAL: +epigastric abdominal pain, +left flank pain, +nausea, + vomiting, -diarrhea GENITOURINARY: -dysuria, +hematuria MUSCULOSKELETAL: -back pain, -neck pain SKIN: -rash or skin lesions. HEMATOLOGIC: -easy bruising or bleeding. LYMPHATIC: -swollen, enlarged glands. NEUROLOGICAL: -altered mental status or loss of consciousness, -headache, - neurologic symptoms PSYCHIATRIC: -anxiety, -depression. ALL OTHER SYSTEMS REVIEWED AND NEGATIVE. Physical Exam - Vital signs Vitals: Temp Pulse Resp BP Pulse Ox 98.9 F 106 H 16 133/73 H 97 01/29/18 15:52 01/29/18 15:52 01/29/18 15:52 01/29/18 15:52 01/29/18 15:52 - Notes Notes: PHYSICAL EXAMINATION: GENERAL: Well-appearing, well-nourished and in no acute distress. HEAD: Atraumatic, normocephalic. EYES: Pupils equal round and reactive to light, extraocular movements intact, sclera anicteric, conjunctiva are normal. ENT: nares patent, oropharynx clear without exudates. Moist mucous membranes. NECK: Normal range of motion, supple without lymphadenopathy LUNGS: Breath sounds clear to auscultation bilaterally and equal. No wheezes rales or rhonchi. HEART: Regular rate and rhythm without murmurs ABDOMEN: Soft, nontender, normoactive bowel sounds. No guarding, no rebound. No masses appreciated. EXTREMITIES: Normal range of motion, no pitting or edema. No cyanosis. NEUROLOGICAL: Cranial nerves grossly intact. Normal speech, normal gait. Normal sensory and motor exams. PSYCH: Normal mood, normal affect. SKIN: Warm, Dry, normal turgor, no rashes or lesions noted. Course - Re-evaluation Re-evalutation: Patient appears well. Her CT scan does not show any evidence of kidney stones or any other acute abnormalities. Her urine shows improvement from a few days ago and she is continuing to take the Keflex. Her headaches is exactly the same as her prior headaches and she sees a neurologist. Patient instructed to stay hydrated and follow-up with her neurologist. Her initial tachycardia resolved. Given strict return precautions and she understands. - Vital Signs Vital signs: Temp Pulse Resp BP Pulse Ox 98.9 F 106 H 16 133/73 H 97 01/29/18 15:52 01/29/18 15:52 01/29/18 15:52 01/29/18 15:52 01/29/18 15:52 - Laboratory Laboratory results interpreted by me: 01/29/18 15:55 Urine Protein 30 H Urine Ketones TRACE H Urine Blood LARGE H Ur Leukocyte Esterase MODERATE H - Diagnostic Test Radiology reviewed: Image reviewed, Reports reviewed Radiology results interpreted by me: CT A/P: NAD Discharge - Discharge Clinical Impression: Epigastric pain, Left flank pain Nausea and vomiting Qualifiers: Vomiting type: unspecified Vomiting Intractability: non-intractable Qualified Code(s): R11.2 - Nausea with vomiting, unspecified Condition: Stable Disposition: HOME, SELF-CARE Additional Instructions: VOMITING: Vomiting (or nausea without vomiting) can be caused by many other different problems. It can mean that something's wrong with the stomach, such as ulcers or inflammation or the intestinal tract, such as appendicitis. But it can also be a symptom of a problem that has nothing to do with the stomach or intestines. Vomiting is common with severe headaches, earaches, tonsillitis, and kidney infections, etc. We see it with pneumonia or heart attacks. Drugs can cause nausea and vomiting. Many abdominal problems cause vomiting; for example, gallstones, kidney stones, pancreatitis, and intestinal obstruction ( blocked bowels). In most cases, curing the vomiting depends on fixing the problem that caused it. For temporary relief, we may use an anti-nausea medicine. For home use, we can prescribe suppositories, chewable pills, pills that dissolve in the mouth, or liquid anti-nausea drugs. If the vomiting seems to be caused by a problem in the stomach, acid-suppressing drugs may be prescribed as well. It's important to avoid dehydration. Sip small amounts of clear liquids ( soft drinks, tea, broth, etc) . Try to take fluids frequently even if you are vomiting to prevent dehydration. Take increasing amounts of fluid and when liquids are being consumed successfully, advance to small amounts of bland food (toast, soups, mashed potatoes, etc.) until you are able to resume a regular diet. Avoid aspirin, tobacco, and alcohol. If the vomiting worsens, if the problem that's making you vomit worsens, or if there's evidence of bleeding in the stomach (such as black, tarry stool, or bloody or black vomit), you should return immediately. Also, return if abdominal pain worsens or becomes localized to one area or you develop high fever. Call your doctor if you aren't improved in 24 hours. FOLLOW-UP CARE: If you have been referred to a physician for follow-up care, call the physician s office for an appointment as you were instructed or within the next two days. If you experience worsening or a significant change in your symptoms, notify the physician immediately or return to the Emergency Department at any time for re-evaluation. Flank Pain We weren't able to prove an exact cause for your flank pain. Pain in the flank can be caused by a muscle strain or spasm. Sometimes a kidney stone causes pain, but can't be found on our tests. Infection in the kidney should be evident on a urine test. Early shingles can occasionally cause flank pain, without the rash that proves the diagnosis. On rare occasions, disease of the pancreas, aorta, spleen, or colon can create pain in the flank. At this time, there's no evidence of a dangerous condition, and it seems safe for you to be at home. If the pain goes away and does not come back, no further testing will be needed. If pain persists, or becomes more severe, we may need to repeat some tests or order additional new testing. Blood in the urine, urgency to urinate frequently, and pain that radiates to the groin can indicate a kidney stone. Fever may mean that the pain is due to infection, either of the kidney or the colon (diverticulitis). If your pain is early shingles, you should develop an eruption of blisters in the painful area within a few days. Call the doctor or return if you have pain that is spreading or becoming more severe, pain that does not resolve with time, fever, or any other new symptoms. HEADACHE: The physician does not feel that the headache you are experiencing has a serious underlying cause. Most headaches are due to emotional stress, with resultant muscle tension (tension headache). Occasionally, headaches are secondary to changes in the blood vessels of the scalp (vascular headache and migraine headache). Sometimes, a headache is the first symptom of another developing illness, such as a viral infection. You have no evidence of stroke, bleeding, meningitis, or other serious cause of your headache. The treatment of headaches varies with the severity and cause of the pain. Not all headaches need pain shots. In fact, there is evidence that using narcotics for headaches may make them worse in the long run. The physician will determine the therapy that's in your best interest. If you develop a fever, if the headache is different from any you've previously experienced, or if the headache progressively worsens, then call your physician at once or go to the emergency room. FOLLOW-UP CARE: If you have been referred to a physician for follow-up care, call the physician s office for an appointment as you were instructed or within the next two days. If you experience worsening or a significant change in your symptoms, notify the physician immediately or return to the Emergency Department at any time for re-evaluation. Prescriptions: Ondansetron [Zofran Odt 4 mg Tablet] 1 - 2 tab PO Q4H PRN #15 tab.rapdis PRN Reason: For Nausea/Vomiting Forms: Elevated Blood Pressure
[2018-01-29 17:34] LABS: APPEARANCE,URINE SLIGHTLY-CLOUDY; BILIRUBIN,URINE NEGATIVE (NEGATIVE); COLOR,URINE AMBER; GLUCOSE, URINE NEGATIVE (NEGATIVE); KETONES,URINE TRACE mg/dL (NEGATIVE); LEUKOCYTE ESTERASE,URINE MODERATE (NEGATIVE); NITRITE,URINE NEGATIVE (NEGATIVE); PROTEIN,URINE 30 mg/dL (NEGATIVE); URINE SPECIFIC GRAVITY 1.021; UROBILINOGEN,URINE NEGATIVE mg/dL (<2.0)
[2018-01-29] MEDS ORDERED: NAPROXEN 250 MG TABLET PO ONE (18:19)
[2018-01-29] MEDS ORDERED: PROMETHAZINE HCL 25 MG TABLET PO ONE (18:35)
[2018-01-29 18:46] VITALS: BP 129/77
== END 2018-01-29 18:46 | disposition home or self-care (01) ==
LOC: ER 15:46
DX: R10.13 Epigastric pain (principal); R11.2 Nausea with vomiting, unspecified; R10.12 Left upper quadrant pain; R51 Headache; R31.9 Hematuria, unspecified; F17.200 Nicotine dependence, unspecified, uncomplicated; Z79.899 Other long term (current) drug therapy; I10 Essential (primary) hypertension; J45.909 Unspecified asthma, uncomplicated
CPT/HCPCS: 99284; 81025; 81001; 76380; S0119; J3490 ×2

== ENCOUNTER → 2019-01-22 | Outpatient (CLI) | payer BC ==
[2019-01-22 18:41] LABS: ABSOLUTE EOSINOPHILS # (AUTO) 0.5 10^3/uL (0.0-0.6); ABSOLUTE LYMPHOCYTES (AUTO) 5.1 10^3/uL (0.5-4.7); ABSOLUTE MONOCYTES (AUTO) 0.9 10^3/uL (0.1-1.4); ABSOLUTE NEUT (AUTO) 6.2 10^3/uL (1.7-8.2); BASOPHILS % (AUTO) 0.4 % (0-2); EOSINOPHILS % (AUTO) 3.5 % (0-6); HEMATOCRIT 42.9 % (36.0-47.0); HEMOGLOBIN 14.8 g/dL (12.0-15.5); LYMPHOCYTES % (AUTO) 40.1 % (13-45); MEAN CORPUSCULAR HEMOGLOBIN 30.8 pg (27.0-33.4); MEAN CORPUSCULAR HGB CONC 34.4 g/dL (32.0-36.0); MEAN CORPUSCULAR VOLUME 90 fl (80-97); MONOCYTES % (AUTO) 7.4 % (3-13); PLATELET COUNT 293 10^3/uL (150-450); RED BLOOD COUNT 4.79 10^6/uL (3.72-5.28); RED CELL DISTRIBUTION WIDTH 12.6 % (11.5-14.0); SEGMENTED NEUTROPHILS % (AUTO) 48.6 % (42-78); TOTAL CELLS COUNTED % (AUTO) 100 %; WHITE BLOOD COUNT 12.7 10^3/uL (4.0-10.5)
[2019-01-22 19:03] LABS: ALANINE AMINOTRANSFERASE 22 U/L (9-52); ALBUMIN 4.3 g/dL (3.5-5.0); ALKALINE PHOSPHATASE 65 U/L (38-126); ANION GAP 8 (5-19); ASPARTATE AMINO TRANSFERASE 22 U/L (14-36); BILIRUBIN,DIRECT 0.3 mg/dL (0.0-0.4); BILIRUBIN,TOTAL 0.8 mg/dL (0.2-1.3); BLOOD UREA NITROGEN 21 mg/dL (7-20); CALCIUM 9.3 mg/dL (8.4-10.2); CARBON DIOXIDE 24 mmol/L (22-30); CHLORIDE 107 mmol/L (98-107); GLUCOSE 77 mg/dL (75-110); POTASSIUM 4.4 mmol/L (3.6-5.0); SODIUM 138.9 mmol/L (137-145); TOTAL PROTEIN 7.5 g/dL (6.3-8.2)
[2019-01-22 20:09] LABS: CHLAM PCR NOT DETECTED (NOT DETECT); GON PCR NOT DETECTED (NOT DETECT)
== END ==
LOC: LAB 18:25
PROVIDERS: ATTEND Nurse Practitioner Acute Care
DX: R30.0 Dysuria (principal); R53.83 Other fatigue
CPT/HCPCS: 36415; 80053; 84443; 85025; 87491; 87591

== ENCOUNTER 2019-09-05 08:20 | Emergency (ER) | payer BC ==
[2019-09-05 08:25] VITALS: BP 126/78
== END 2019-09-05 10:26 | disposition left against medical advice (07) ==
LOC: ER 08:20
DX: Z53.21 Procedure and treatment not carried out due to patient leaving prior to being seen by health care provider (principal)